=== PATIENT | female | born 1965 | race Caucasian/White ===

== ENCOUNTER 2017-11-09 14:12 | Emergency (ER) | payer OTHER ==
[~2017-11-09] VITALS: Ht 162.6 cm; Wt 70.4 kg
[2017-11-09 15:54] LABS: HEMATOCRIT 37.8 % (36.0-46.0); HEMOGLOBIN 13.7 G/DL (11.9-15.5); MCH 33.1 PG (29.0-34.0); MCHC 36.2 G/DL (30.0-36.0); MCV 91.3 FL (83-99); PLATELET COUNT 220 K/uL (156-360); RBC DIS.WIDTH-CV 13.5 % (11.8-14.6); RBC DIS.WIDTH-SD 46.1 % (39-53); RED BLOOD COUNT 4.14 M/uL (3.80-5.20); WHITE BLOOD COUNT 9.6 K/uL (4.1-10.2)
[2017-11-09 16:05] LABS: CHLORIDE 100 mEq/L (99-109); SODIUM 137 mEq/L (136-147)
[2017-11-09 16:07] LABS: GLUCOSE 94 mg/dL (70-99)
[2017-11-09 16:11] LABS: CREATININE 0.9 mg/dL (0.6-1.3); GFR ESTIMATE (CALCULATED) > 59 mL/min/; UREA NITROGEN (BUN) 10 mg/dL (9-23)
[2017-11-09] MEDS ORDERED: PERCOCET 5/31 TABLET PO (17:43)
[2017-11-09] MEDS ORDERED: CLEOCIN300 MG PO (17:43)
[2017-11-09 17:55] VITALS: BP 147/96
== END 2017-11-09 17:56 | disposition home or self-care (01) ==
LOC: EME 14:12
PROVIDERS: Nurse Practitioner Family
DX: H05.012 Cellulitis of left orbit (principal); R50.9 Fever, unspecified; F17.200 Nicotine dependence, unspecified, uncomplicated
CPT/HCPCS: 70487; 80048; 85027; 99281; 99284; J7030